=== PATIENT | female | born 1985 | race Caucasian/White ===

== ENCOUNTER 2017-12-18 22:33 | Emergency (ER) | payer OTHER ==
--- NOTE | 2017-12-18 23:11 | ED ---
Abdominal Pain HPI - General Chief Complaint: Abdominal Pain Stated Complaint: BACK PAIN Time Seen by Provider: 12/18/17 22:43 Source: patient Mode of arrival: EMS Limitations: no limitations - History of Present Illness MD Complaint: flank pain Onset/Timin -: week(s) Location: R flank Radiation: RUQ Migration to: no migration Severity: severe Quality: aching Consistency: constant Improves With: nothing Worsens With: nothing Associated Symptoms: dysuria - Related Data LMP (females 10-50): this week Home Medications Medication Instructions Recorded Confirmed Sertraline [Zoloft] 100 mg PO BID 09/24/15 12/18/17 busPIRone HCl [Buspar] 10 mg PO BID 09/24/15 12/18/17 Albuterol Inhaler [Ventolin Hfa 1 puff INHALATION RT-BID PRN 12/18/17 12/18/17 Inhaler] Albuterol Nebulized [Ventolin 2.5 mg INHALATION RT-Q6H PRN 12/18/17 12/18/17 Nebulized] Budesonide-Formot 160-4.5 Mcg 2 puff INHALATION RT-BID 12/18/17 12/18/17 [Symbicort 160-4.5 Mcg Inhaler] Ciprofloxacin HCl [Cipro] 500 mg PO BID 12/18/17 12/18/17 Ibuprofen [Motrin] 800 mg PO QID PRN 12/18/17 12/18/17 Previous Rx's Medication Instructions Recorded Cephalexin [Keflex] 500 mg PO TID #30 cap 12/19/17 Allergies Allergy/AdvReac Type Severity Reaction Status Date / Time amoxicillin AdvReac Rash/Hives Verified 12/18/17 22:46 codeine AdvReac Rash/Hives Verified 12/18/17 22:46 hydrocodone bitartrate AdvReac Rash/Hives Verified 12/18/17 22:46 [From Vicodin] phenazopyridine HCl AdvReac Rash/Hives Verified 12/18/17 22:46 [From Pyridium] sulfamethoxazole AdvReac Rash/Hives Verified 12/18/17 22:46 [From Bactrim] trimethoprim [From Bactrim] AdvReac Rash/Hives Verified 12/18/17 22:46 Review of Systems ROS Statement: Those systems with pertinent positive or pertinent negative responses have been documented in the HPI. ROS Other: All systems not noted in ROS Statement are negative. Constitutional: Denies: fever, chills Respiratory: Denies: cough, dyspnea Cardiovascular: Denies: chest pain, palpitations Gastrointestinal: Reports: abdominal pain. Denies: nausea, vomiting, diarrhea, constipation Genitourinary: Reports: dysuria, frequency. Denies: hematuria Musculoskeletal: Reports: back pain Skin: Denies: rash Neurological: Denies: headache, weakness, numbness Past Medical History Past Medical History: No Reported History Additional Past Medical History / Comment(s): KIDNEY STONES History of Any Multi-Drug Resistant Organisms: None Reported Past Surgical History: Cholecystectomy, Tonsillectomy Past Psychological History: Anxiety, Bipolar, Depression Smoking Status: Never smoker Past Alcohol Use History: None Reported Past Drug Use History: None Reported General Exam Limitations: no limitations General appearance: alert, in no apparent distress Head exam: Present: atraumatic, normocephalic Eye exam: Present: normal appearance. Absent: scleral icterus, conjunctival injection ENT exam: Present: mucous membranes dry Neck exam: Present: normal inspection Respiratory exam: Present: normal lung sounds bilaterally. Absent: respiratory distress, wheezes, rales, rhonchi, stridor Cardiovascular Exam: Present: regular rate, normal rhythm, normal heart sounds. Absent: systolic murmur, diastolic murmur, rubs, gallop GI/Abdominal exam: Present: soft, tenderness, normal bowel sounds. Absent: distended, guarding, rebound, mass, pulsatile mass, hernia Extremities exam: Present: normal inspection, normal capillary refill. Absent: pedal edema, calf tenderness Back exam: Present: normal inspection, CVA tenderness (R). Absent: CVA tenderness (L) Neurological exam: Present: alert Skin exam: Present: warm, dry, intact, normal color. Absent: rash Course Vital Signs 12/18/17 22:36 Temperature 97.5 F L Pulse Rate 78 Respiratory 18 Rate Blood Pressure 134/61 O2 Sat by Pulse 98 Oximetry Medical Decision Making - Lab Data Result diagrams: 12/18/17 23:40 12/18/17 23:40 Lab Results 12/18/17 12/18/17 12/18/17 Range/Units 23:40 23:40 23:40 WBC 8.0 (3.8-10.6) k/uL RBC 4.27 (3.80-5.40) m/uL Hgb 12.5 (11.4-16.0) gm/dL Hct 35.4 (34.0-46.0) % MCV 83.0 (80.0-100.0) fL MCH 29.4 (25.0-35.0) pg MCHC 35.4 (31.0-37.0) g/dL RDW 12.5 (11.5-15.5) % Plt Count 270 (150-450) k/uL Neutrophils % 60 % Lymphocytes % 30 % Monocytes % 4 % Eosinophils % 3 % Basophils % 0 % Neutrophils # 4.8 (1.3-7.7) k/uL Lymphocytes # 2.4 (1.0-4.8) k/uL Monocytes # 0.3 (0-1.0) k/uL Eosinophils # 0.3 (0-0.7) k/uL Basophils # 0.0 (0-0.2) k/uL Sodium 140 (137-145) mmol/L Potassium 4.3 (3.5-5.1) mmol/L Chloride 107 (98-107) mmol/L Carbon Dioxide 24 (22-30) mmol/L Anion Gap 9 mmol/L BUN 11 (7-17) mg/dL Creatinine 0.65 (0.52-1.04) mg/dL Est GFR (CKD-EPI)AfAm >90 (>60 ml/min/1.73 sqM) Est GFR (CKD-EPI)NonAf >90 (>60 ml/min/1.73 sqM) Glucose 102 H (74-99) mg/dL Calcium 9.3 (8.4-10.2) mg/dL Total Bilirubin 0.2 (0.2-1.3) mg/dL AST 28 (14-36) U/L ALT 28 (9-52) U/L Alkaline Phosphatase 56 (38-126) U/L Total Protein 6.3 (6.3-8.2) g/dL Albumin 3.7 (3.5-5.0) g/dL Amylase <30 L (30-110) U/L Lipase 44 (23-300) U/L Urine Color Urine Appearance (Clear) Urine pH (5.0-8.0) Ur Specific [place] (1.001-1.035) Urine Protein (Negative) Urine Glucose (UA) (Negative) Urine Ketones (Negative) Urine Blood (Negative) Urine Nitrite (Negative) Urine Bilirubin (Negative) Urine Urobilinogen (<2.0) mg/dL Ur Leukocyte Esterase (Negative) Urine RBC (0-5) /hpf Urine WBC (0-5) /hpf Ur Squamous Epith Cells (0-4) /hpf Calcium Oxalate Crystal (None) /hpf Urine Bacteria (None) /hpf Hyaline Casts (0-2) /lpf Urine Mucus (None) /hpf Urine HCG, Qual Not Detected (Not Detectd) 12/18/17 Range/Units 23:40 WBC (3.8-10.6) k/uL RBC (3.80-5.40) m/uL Hgb (11.4-16.0) gm/dL Hct (34.0-46.0) % MCV (80.0-100.0) fL MCH (25.0-35.0) pg MCHC (31.0-37.0) g/dL RDW (11.5-15.5) % Plt Count (150-450) k/uL Neutrophils % % Lymphocytes % % Monocytes % % Eosinophils % % Basophils % % Neutrophils # (1.3-7.7) k/uL Lymphocytes # (1.0-4.8) k/uL Monocytes # (0-1.0) k/uL Eosinophils # (0-0.7) k/uL Basophils # (0-0.2) k/uL Sodium (137-145) mmol/L Potassium (3.5-5.1) mmol/L Chloride (98-107) mmol/L Carbon Dioxide (22-30) mmol/L Anion Gap mmol/L BUN (7-17) mg/dL Creatinine (0.52-1.04) mg/dL Est GFR (CKD-EPI)AfAm (>60 ml/min/1.73 sqM) Est GFR (CKD-EPI)NonAf (>60 ml/min/1.73 sqM) Glucose (74-99) mg/dL Calcium (8.4-10.2) mg/dL Total Bilirubin (0.2-1.3) mg/dL AST (14-36) U/L ALT (9-52) U/L Alkaline Phosphatase (38-126) U/L Total Protein (6.3-8.2) g/dL Albumin (3.5-5.0) g/dL Amylase (30-110) U/L Lipase (23-300) U/L Urine Color Yellow Urine Appearance Clear (Clear) Urine pH 6.0 (5.0-8.0) Ur Specific [place] 1.023 (1.001-1.035) Urine Protein Trace H (Negative) Urine Glucose (UA) Negative (Negative) Urine Ketones Negative (Negative) Urine Blood Moderate H (Negative) Urine Nitrite Negative (Negative) Urine Bilirubin Negative (Negative) Urine Urobilinogen <2.0 (<2.0) mg/dL Ur Leukocyte Esterase Trace H (Negative) Urine RBC 82 H (0-5) /hpf Urine WBC 35 H (0-5) /hpf Ur Squamous Epith Cells 5 H (0-4) /hpf Calcium Oxalate Crystal Occasional H (None) /hpf Urine Bacteria Rare H (None) /hpf Hyaline Casts 1 (0-2) /lpf Urine Mucus Occasional H (None) /hpf Urine HCG, Qual (Not Detectd) Disposition Clinical Impression: Urinary tract infection Disposition: HOME SELF-CARE Condition: Good Instructions: Urinary Tract Infection in Women (ED) Prescriptions: Cephalexin [Keflex] 500 mg PO TID #30 cap Referrals: Cedric Singletary MD [Primary Care Provider] - 1-2 days
[2017-12-18 23:59] LABS: Basophils % (A) 0 %; Eosinophils # (A) 0.3 k/uL (0-0.7); Eosinophils % (A) 3 %; HCT 35.4 % (34.0-46.0); HGB 12.5 gm/dL (11.4-16.0); Lymphocytes # (A) 2.4 k/uL (1.0-4.8); Lymphocytes % (A) 30 %; MCH 29.4 pg (25.0-35.0); MCHC 35.4 g/dL (31.0-37.0); Mean Platelet Volume 7.2; Monocytes # (A) 0.3 k/uL (0-1.0); Monocytes % (A) 4 %; Neutrophils # (A) 4.8 k/uL (1.3-7.7); Neutrophils % (A) 60 %; Platelet Count 270 k/uL (150-450); RBC 4.27 m/uL (3.80-5.40); RDW 12.5 % (11.5-15.5)
[2017-12-19] LABS: Appearance,Urine Clear (Clear); Bacteria,Urine Rare /hpf; Bilirubin,Urine Negative (Negative); Blood,Urine Moderate (Negative); Calcium Oxalate Crystals,Urine Occasional /hpf; Color,Urine Yellow; Glucose,Urine (UA) Negative (Negative); Hyaline Casts,Urine 1 /lpf (0-2); Ketones,Urine Negative (Negative); Leukocyte Esterase,Urine Trace (Negative); Mucus,Urine Occasional /hpf; Nitrite,Urine Negative (Negative); Protein,Urine Trace (Negative); RBC,Urine 82 /hpf (0-5); Specific Gravity,Urine 1.023 (1.001-1.035); Squamous Epithelial Cell,Urine 5 /hpf (0-4); Urobilinogen,Urine <2.0 mg/dL (<2.0); WBC,Urine 35 /hpf (0-5)
[2017-12-19 00:05] LABS: Albumin 3.7 g/dL (3.5-5.0); Amylase <30 U/L (30-110); Anion Gap 9 mmol/L; Calcium 9.3 mg/dL (8.4-10.2); Carbon Dioxide 24 mmol/L (22-30); Chloride 107 mmol/L (98-107); Glucose 102 mg/dL (74-99); Lipase 44 U/L (23-300); Sodium 140 mmol/L (137-145); Total Bilirubin 0.2 mg/dL (0.2-1.3); Total Protein 6.3 g/dL (6.3-8.2)
[2017-12-19 00:06] LABS: ALT 28 U/L (9-52); AST 28 U/L (14-36); Alkaline Phosphatase 56 U/L (38-126); Blood Urea Nitrogen 11 mg/dL (7-17); Potassium 4.3 mmol/L (3.5-5.1)
--- NOTE | 2017-12-19 00:40 | CT ---
EXAMINATION TYPE: CT abdomen pelvis wo con DATE OF EXAM: 12/19/2017 COMPARISON: 02/18/2016 HISTORY: Rt flank pain CT DLP: 703.40 mGycm Automated exposure control for dose reduction was used. TECHNIQUE: Helical acquisition of images was performed from the lung bases through the pelvis. FINDINGS: Lung bases are clear. There is no pleural effusion. Heart size is normal. Liver spleen pancreas appear normal. There are clips from cholecystectomy. Bile ducts are not dilated . There is no adrenal mass. Kidneys have normal size. There is no hydronephrosis. Ureters are not dilat ed. There is a 1 mm calculus in the lower pole left kidney. There is no retroperitoneal adenopathy. Abdominal aorta has normal size. There is no ascites. Bladder distends smoothly. There is no sign of a pelvic mass. Uterus is anteverted. Lumbar spine is intact. I do not see definitely the appendix. There is no sign of appendicitis. Terminal ileum appears normal . IMPRESSION: SMALL CALCULUS IN THE LOWER POLE LEFT KIDNEY. NO HYDRONEPHROSIS. NO EVIDENCE OF RIGHT-SIDED RENAL OBS TRUCTION. THERE IS CLEARING OF THE RIGHT RENAL CALCULUS COMPARED TO OLD EXAM.
[2017-12-19] MEDS ORDERED: cefTRIAXone IN SWFI 1,000 MG/10 ML SYRINGE IVP STA (01:52)
[2017-12-19] MEDS ORDERED: KETOROLAC 30 MG/ML 1 ML VIAL IVP STA (01:54)
[2017-12-19] MEDS ORDERED: MORPHINE SULF 5MG/10ML VL IV STA (01:54)
[2017-12-19 02:22] VITALS: BP 110/60; PULSE 76; RESP 16; TEMP 98.3
== END 2017-12-19 02:21 | disposition home or self-care (01) ==
LOC: EC 22:33
DX: N39.0 Urinary tract infection, site not specified (principal); F31.9 Bipolar disorder, unspecified; F41.9 Anxiety disorder, unspecified; Z87.442 Personal history of urinary calculi; Z90.49 Acquired absence of other specified parts of digestive tract; Z88.0 Allergy status to penicillin; Z88.1 Allergy status to other antibiotic agents; Z88.2 Allergy status to sulfonamides; Z88.5 Allergy status to narcotic agent; Z88.8 Allergy status to other drugs, medicaments and biological substances; Z79.51 Long term (current) use of inhaled steroids; Z79.899 Other long term (current) drug therapy
CPT/HCPCS: 99284; 96374; 96375 ×2; 36415; 80053; 82150; 83690; 85025; 81001; 81025; 74176; J0696; J1885; J2270

== ENCOUNTER 2018-03-23 16:32 | Emergency (ER) | payer OTHER ==
--- NOTE | 2018-03-23 17:08 | ED ---
Lower Extremity Injury HPI - General Stated Complaint: Knee Pain Time Seen by Provider: 03/23/18 16:58 Source: patient, RN notes reviewed Mode of arrival: wheelchair Limitations: no limitations - History of Present Illness Initial Comments: This a 32-year-old female presents emergency Department chief complaint of right knee pain. Patient's been having worsening pain last 2-3 days. Patient denies any trauma though she states that she believes she may have injured it helping her who is wheelchair bound. She states that she has to help transfer M, coupled all daily activities. Patient states that pain is worse when she is weightbearing or with movement. She does admit that is better at rest she's been taking her Ultram and ibuprofen as directed by her PCP. Patient denies any swelling redness or discoloration. - Related Data Home Medications Medication Instructions Recorded Confirmed Sertraline [Zoloft] 200 mg PO DAILY 09/24/15 03/23/18 busPIRone HCl [Buspar] 10 mg PO BID 09/24/15 03/23/18 Albuterol Inhaler [Ventolin Hfa 1 puff INHALATION RT-BID PRN 12/18/17 03/23/18 Inhaler] Albuterol Nebulized [Ventolin 2.5 mg INHALATION RT-Q6H PRN 12/18/17 03/23/18 Nebulized] Budesonide-Formot 160-4.5 Mcg 2 puff INHALATION RT-BID 12/18/17 03/23/18 [Symbicort 160-4.5 Mcg Inhaler] Ibuprofen [Motrin] 800 mg PO QID PRN 12/18/17 03/23/18 Atomoxetine HCl [Strattera] 40 mg PO DAILY 03/23/18 03/23/18 Ergocalciferol (Vitamin D2) 50,000 unit PO Q30D 03/23/18 03/23/18 [Vitamin D2] traMADol HCl [Ultram] 50 mg PO Q6HR PRN 03/23/18 03/23/18 Allergies Allergy/AdvReac Type Severity Reaction Status Date / Time amoxicillin AdvReac Rash/Hives Verified 03/23/18 17:19 codeine AdvReac Rash/Hives Verified 03/23/18 17:19 hydrocodone bitartrate AdvReac Rash/Hives Verified 07/05/18 17:19 [From Vicodin] phenazopyridine HCl AdvReac Rash/Hives Verified 03/23/18 17:19 [From Pyridium] sulfamethoxazole AdvReac Rash/Hives Verified 03/23/18 17:19 [From Bactrim] trimethoprim [From Bactrim] AdvReac Rash/Hives Verified 03/23/18 17:19 Review of Systems ROS Statement: Those systems with pertinent positive or pertinent negative responses have been documented in the HPI. ROS Other: All systems not noted in ROS Statement are negative. Past Medical History Past Medical History: No Reported History Additional Past Medical History / Comment(s): KIDNEY STONES History of Any Multi-Drug Resistant Organisms: None Reported Past Surgical History: Cholecystectomy, Tonsillectomy Past Psychological History: Anxiety, Bipolar, Depression Smoking Status: Never smoker Past Alcohol Use History: None Reported Past Drug Use History: None Reported General Exam General appearance: alert, in no apparent distress Neck exam: Present: normal inspection. Absent: tenderness, meningismus, lymphadenopathy Respiratory exam: Present: normal lung sounds bilaterally. Absent: respiratory distress, wheezes, rales, rhonchi, stridor Cardiovascular Exam: Present: regular rate, normal rhythm, normal heart sounds. Absent: systolic murmur, diastolic murmur, rubs, gallop, clicks Extremities exam: Present: other (Right knee diffuse tenderness with palpation, there is mild crepitus noted, pedal pulses equal bilaterally there is no erythema no warmth and no swelling noted pain with any range of motion) Skin exam: Present: warm, dry, intact, normal color. Absent: rash Course Vital Signs 03/23/18 17:09 Temperature 98.2 F Pulse Rate 79 Respiratory 18 Rate Blood Pressure 136/93 O2 Sat by Pulse 99 Oximetry Medical Decision Making - Medical Decision Making 32-year-old presented emergency department for right knee pain. Patient most likely has a right knee strain/sprain. Patient will be placed in knee immobilizer follow-up with orthopedics. Disposition Clinical Impression: Right knee pain, Strain of right knee Disposition: HOME SELF-CARE Condition: Stable Instructions: Knee Sprain (ED) Additional Instructions: Please return to the Emergency Department if symptoms worsen or any other concerns. Is patient prescribed a controlled substance at d/c from ED?: No Referrals: Cedric Singletary MD [Primary Care Provider] - 1-2 days Gavino Dewitt MD [Medical Doctor] - 1-2 days
[2018-03-23 17:11] VITALS: BP 136/93; PULSE 79; RESP 18; TEMP 98.2
--- NOTE | 2018-03-23 17:31 | XR ---
Right knee 3 views. History pain. comparison none. FINDINGS: I see no fracture nor dislocation. Joint spaces are normal. There is no sign of knee joint effusion. IMPRESSION: Negative right knee exam.
[2018-03-23] MEDS ORDERED: KETOROLAC 60 MG/2 ML VIAL IM STA (17:37)
== END 2018-03-23 18:27 | disposition home or self-care (01) ==
LOC: EC 16:32
DX: S86.911A Strain of unspecified muscle(s) and tendon(s) at lower leg level, right leg, initial encounter (principal); F41.9 Anxiety disorder, unspecified; F31.9 Bipolar disorder, unspecified; Z79.51 Long term (current) use of inhaled steroids; Z79.899 Other long term (current) drug therapy; Z88.0 Allergy status to penicillin; Z88.1 Allergy status to other antibiotic agents; Z88.2 Allergy status to sulfonamides; Z88.5 Allergy status to narcotic agent; X58.XXXA Exposure to other specified factors, initial encounter
CPT/HCPCS: 73562; 99283; 96372; L1830; J1885

== ENCOUNTER → 2018-04-25 | Outpatient (CLI) | payer OTHER ==
--- NOTE | 2018-04-25 22:51 | US ---
EXAMINATION TYPE: US kidneys/renal and bladder DATE OF EXAM: 04/25/2018 COMPARISON: CT 12/19/2017 CLINICAL HISTORY: 32-year-old female with right Flank Pain R10.9. Right side pain, hx of multiple UTI 's, hx of renal stones TECHNIQUE: Multiple sonographic images of the kidneys and bladder are obtained. FINDINGS: Right Kidney: 9.6 x 4.0 x 4.0 cm with a 1.3 cm extrarenal pelvis. No hydronephrosis. Left Kidney: 10.2 x 4.2 x 4.6 cm without hydronephrosis. The punctate lower pole calculus seen on CT of 12/19/2017 is not appreciated on the present exam. No gross abnormality of the urine distended bladder. Neither ureteral jet is seen near the course of the exam. IMPRESSION: No hydronephrosis.
== END | disposition home or self-care (01) ==
LOC: RADUSWWP 15:58
PROVIDERS: ATTEND Family Medicine
DX: R10.9 Unspecified abdominal pain (principal); Z88.0 Allergy status to penicillin; Z88.1 Allergy status to other antibiotic agents; Z88.2 Allergy status to sulfonamides; Z88.5 Allergy status to narcotic agent
CPT/HCPCS: 76770

== ENCOUNTER → 2018-09-07 | Outpatient (CLI) | payer OTHER | LOC: LABWHC1 17:01 | PROVIDERS: ATTEND Nurse Practitioner | DX: Z32.00 Encounter for pregnancy test, result unknown (principal) | CPT/HCPCS: 36415; 84702 ==

== ENCOUNTER 2024-12-06 16:58 | Emergency (ER) | payer OTHER ==
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
[2024-12-06] MEDS: KETOROLAC 15 MG/ML 1 ML VIAL IM STA (19:20)
[2024-12-06 19:34] VITALS: BP 115/77; PULSE 81; RESP 18; TEMP 98.1
== END 2024-12-06 19:33 | disposition home or self-care (01) ==
LOC: EC 16:58
DX: M54.50 Low back pain, unspecified (principal); Z88.0 Allergy status to penicillin; Z88.5 Allergy status to narcotic agent; Z88.2 Allergy status to sulfonamides; Z88.1 Allergy status to other antibiotic agents; Z88.8 Allergy status to other drugs, medicaments and biological substances; V49.9XXA Car occupant (driver) (passenger) injured in unspecified traffic accident, initial encounter; Y92.410 Unspecified street and highway as the place of occurrence of the external cause
CPT/HCPCS: 72100; 99284; 96372; J1885